=== PATIENT | female | born 1975 | race African-American/Black ===

== ENCOUNTER 2017-11-28 21:58 | Emergency (ER) | payer SELFPAY ==
[~2017-11-28] VITALS: Ht 157.5 cm; Wt 102.5 kg
--- OUTSIDE RECORDS SUMMARY | 2017-11-28 22:00 | XMS REPORT ---
[facility] Address Unknown Phone Unavailable Care Team Providers Care Perforator Typist Name Role Phone JULIEN GILLILAND Unavailable Unavailable Problems This patient has no known problems. Allergies, Adverse Reactions, Alerts This patient has no known allergies or adverse reactions. Medications This patient has no known medications. Results Test Description Test Time Test Comments Text Results Atomic Results Result Comments CHEST SINGLE (PORTABLE) [place] [id number] Patient Name: KIKI LAI MR #: [id number] : 1975 Age/Sex: 42/F Req #: [id number] Adm Physician: Ordered by: JULIEN GILLILAND MD Report #: [id number] Location: ER Room/Bed: ___ Procedure: [id number] DX/CHEST SINGLE (PORTABLE) Exam Date: 08/03/17 Exam Time: 2039 REPORT STATUS: Signed EXAMINATION: CHEST SINGLE (PORTABLE) INDICATION: COMPARISON: None FINDINGS: AP view TUBES and LINES: None. LUNGS: Limited by body habitus. Lungs are well inflated. Mild central vascular congestion. No focal consolidation. PLEURA: No pleural effusion or pneumothorax. HEART AND MEDIASTINUM: The cardiomediastinal silhouette is unremarkable. Prominent right paratracheal stripe. BONES AND SOFT TISSUES: No acute osseous lesion. Soft tissues are unremarkable. UPPER ABDOMEN: No free air under the diaphragm. IMPRESSION: Mild central vascular congestion. Otherwise, unremarkable. Signed by: Dr. Joaquín Bonilla MD on 08/03/2017 8:49 PM Dictated By : JOAQUÍN BONILLA MD 46 Transcribed By: PANCHITO on 08/03/172048 COPY TO: JULIEN GILLILAND MD
[2017-11-28 22:52] LABS: BASOPHILS # (AUTO) 0.1 (0.0-0.1); BASOPHILS % 0.6 % (0.0-1.0); EOSINOPHILS # (AUTO) 0.1 (0.0-0.4); EOSINOPHILS % 1.6 % (0.0-6.0); HEMATOCRIT 34.3 % (34.2-44.1); HEMOGLOBIN 11.1 g/dL (12.0-16.0); LYMPHOCYTES % 56.4 % (18.0-39.1); MEAN CORPUSCULAR HEMOGLOBIN 27.4 pg (28-32); MEAN CORPUSCULAR HGB CONC 32.4 g/dL (31-35); MEAN CORPUSCULAR VOLUME 84.7 fL (81-99); MONOCYTES # (AUTO) 0.7 (0.2-0.8); NEUTROPHILS # (AUTO) 2.9 (2.1-6.9); NEUTROPHILS % 33.1 % (38.7-80.0); PLATELET COUNT 336 x10e3/uL (140-360); RED BLOOD COUNT 4.05 x10e6/uL (3.6-5.1)
[2017-11-28 23:07] LABS: ALANINE AMINOTRANSFERASE 14 IU/L (0-55); ALBUMIN 3.3 g/dL (3.5-5.0); ALKALINE PHOSPHATASE 76 IU/L (40-150); ANION GAP 14.1 mmol/L (8-16); BLOOD UREA NITROGEN 7 mg/dL (7-26); BUN/CREATININE RATIO 9 (6-25); CALCIUM 8.8 mg/dL (8.4-10.2); CARBON DIOXIDE 19 mmol/L (22-29); CHLORIDE 107 mmol/L (98-107); CREATININE, SERUM 0.77 mg/dL (0.57-1.11); EST GLOMERULAR FILTRATION RATE > 60 ML/MIN (60-); GLUCOSE 92 mg/dL (74-118); POTASSIUM 4.1 mmol/L (3.5-5.1); SODIUM 136 mmol/L (136-145)
--- NOTE | 2017-11-28 23:08 | Diagnostic Imaging Report ---
History:Headache, slurred speech, migraines Comparison studies:None Technique: Axial images were obtained from the brain and cervical spine. Coronal and sagittal images reconstructed from the axial data. Intravenous contrast: None Findings: Head CT: Scalp/skull: No abnormalities. No fractures, blastic or lytic lesions. Brain sulci: Appropriate for age. Ventricles: Normal in size and configuration. No hydrocephalus. Extra-axial spaces: No masses. No fluid collections. Parenchyma: No abnormal densities. No masses, hemorrhage, acute or chronic cortical vascular insults. Sellar/suprasellar region: No abnormalities. Craniocervical junction: Patent foramen magnum. No Chiari one malformation. Cervical spine CT: Fractures: None. Soft tissues: No gross abnormalities. Atlantoaxial articulation: Intact. Alignment: Straightening of thr normal lordosis. No scoliosis. Cervicomedullary junction: No abnormalities. Patent foramen magnum. Vertebrae: No infection or neoplasm. Degenerative changes: None. Incidental findings: None. Impression: Head CT: 1. Normal. Cervical spine CT: 1. No acute abnormalities. 2. Cannot exclude ligament, spinal cord and or vascular abnormalities on the basis of this examination. Signed by: DR Chance Tapia M.D. on 11/28/2017 11:04 PM
== END 2017-11-28 23:36 | disposition home or self-care (01) ==
LOC: ER 21:58
DX: M54.2 Cervicalgia (principal); S16.1XXA Strain of muscle, fascia and tendon at neck level, initial encounter; G44.211 Episodic tension-type headache, intractable
CPT/HCPCS: 36415; 70450; 72125; 80053; 85025; 99283

== ENCOUNTER 2019-02-20 08:24 | Emergency (ER) | payer SELFPAY ==
[~2019-02-20] VITALS: Ht 157.5 cm; Wt 112.9 kg
--- OUTSIDE RECORDS SUMMARY | 2019-02-20 08:28 | XMS REPORT ---
Author Author Dr. Enzo Chiang Organization [employer] Address Unknown Phone Unavailable Care Team Providers Care Lacquer Mixer Name Role Phone Dr. Enzo Chiang CP Unavailable Encounters Encounter Location Date Rizatriptan [place] January 04, 2015 Unknown [place] January 11, 2015 6 wk f/u Enzo Chiang MD, [place] January 17, 2015 New Refill Request Enzo Chiang MD, [place] February 26, [address] 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 High school diploma, [employer] Jun 04, 2015 Use of recreational / street drugs? . Answer: No Jun 04, 2015 Caffeine intake? . Status: Yes, What type: Coffee, 1 cup a day Jun 04, 2015 Do you exercise? . Answer: Yes Very Little Jun 04, 2015 Do you drink alcohol? . 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
--- OUTSIDE RECORDS SUMMARY | 2019-02-20 08:28 | XMS REPORT ---
Author Author Enzo Chiang [employer] Address Unknown Phone Unavailable Care Team Providers Care Oxyhydrogen Welder Name Role Phone Enzo Chiang CP Unavailable Encounters Encounter Location Date Rizatriptan [place] January 04, 2015 Unknown [place] January 11, 2015 6 wk f/u Enzo Chiang MD, [place] January 17, 2015 New Refill Request [place] February 26, [address] 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 High school diploma, [employer] January 17, 2015 Use of recreational / street drugs? . Answer: No January 17, 2015 Caffeine intake? . Status: Yes, What type: Coffee, 1 cup a day January 17, 2015 Do you exercise? . Answer: Yes Very Little January 17, 2015 Do you drink alcohol? . 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
--- OUTSIDE RECORDS SUMMARY | 2019-02-20 08:28 | XMS REPORT ---
Author Author Enzo Chiang [employer] Address Unknown Phone Unavailable Care Team Providers Care Tank Erector Name Role Phone Enzo Chiang CP Unavailable Encounters Encounter Location Date Rizatriptan [place] January 04, 2015 Unknown [place] January 11, 2015 6 wk f/u [place] January 17, 2015 New Refill Request Enzo [...] [place], [place] March 06, 2015 Problems Problem Type Condition ICD-9 Code [...]
--- OUTSIDE RECORDS SUMMARY | 2019-02-20 08:28 | XMS REPORT ---
Author Author Dr. Enzo Chiang Organization [employer] Address Unknown Phone Unavailable Care Team Providers Care Sanitarian Name Role Phone Dr. Enzo Chiang CP Unavailable Allergies, Adverse Reactions, Alerts Substance Reaction Event Type Penicillin Info Not Available Drug Allergy Encounters Encounter Location Date Rizatriptan [place] January 04, 2015 Unknown Enzo Chiang MD, [place] January 11, 2015 6 wk f/u Enzo [...] March 18, 2015 New Refill Request Enzo Chaing MD, [place] February 26, 2015 Side Effects Enzo Chiang [place], [place] March 06, 2015 6 month f/u [place] December 18, 2015 2 month follow up Enzo Chi[place], [place] Jun 04, 2015 Health update En[place] Chi[place], [place] Jul 22, 2015 follow up medication Enzo Chiang MD, [place] April 02, 2015 Migraine Headache Enzo Chi[place], [place] April 09, 2015 Problems Problem Type Condition ICD-9 Code Onset Dates Condition Status Problem Status migrainosus G43.901 Active 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 Problem Common migraine with intractable migraine G43.019 Active Assessment Status migrainosus G43.901 Active Problem Tension headache 307.81 Active Assessment Common migraine with intractable migraine G43.019 Active Medications Medication Code System Code Instructions Start Date End Date Status Dosage [facility] [address]-75 100 mg Orally twice a day (bid) January 17, 2015 Active 1 tablet Nortriptyline HCl [facility] [address]-33 50 mg Orally twice a day (bid) December 11, 2014 Active 1 capsule Medrol (Michel) [facility] [address]-14 4 mg Orally as directed December 18, 2015 December 25, 2015 Active as directed Rizatriptan Benzoate [facility] [address]-53 10 mg Orally as needed (prn) Active 1 tablet as needed one time Social History Social History Element Qualifiers Date Reported Highest level of education completed: . High school diploma, [employer] December 18, 2015 Use of recreational / street drugs? . Answer: No December 18, 2015 Caffeine intake? . Status: Yes, What type: Coffee, 1 cup a day December 18, 2015 Do you exercise? . Answer: Yes Very Little December 18, 2015 Do you drink alcohol? . 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
--- OUTSIDE RECORDS SUMMARY | 2019-02-20 08:28 | XMS REPORT ---
Author Author Enzo Chiang [employer] Address Unknown Phone Unavailable Care Team Providers Care Surgery Attendant Name Role Phone Enzo Chiang CP Unavailable Encounters Encounter Location Date Rizatriptan Refill [place] January 04, 2015 Unknown Enzo Chiang MD [place] January 11, 2015 6 wk f/u [place] January 17, 2015 New Refill Request [place] February 26, [address] Javier Ortega; Migraine [place], [place] November 28, 2014 follow up medication [place], [place] April 02, 2015 f/u lab results En[place] Chi[place], [place] December 11, 2014 Migraine Headache Enzo Chiang MD, [place] April 09, 2015 Migraine [place], [place] December 17, [...] completed: . High school diploma, [employer] April 02, 2015 Use of recreational / street drugs? . Answer: No April 02, 2015 Caffeine intake? . Status: Yes, What type: Coffee, 1 cup a day April 02, 2015 Do you exercise? . Answer: Yes Very Little April 02, 2015 Do you drink alcohol? . 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
--- OUTSIDE RECORDS SUMMARY | 2019-02-20 08:28 | XMS REPORT | Continuity of Care Document ---
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 Andree [place] Common migraine Active Problem 07/23/2015 Andree [place] Status migrainosus Active Problem 12/19/2015 Andree Mariia Common migraine with intractable migraine Active Problem 12/19/2015 Andree Mariia Medications Medication Details Route Status Patient Instructions Ordering Provider Order Date Source Medrol (Michel) as directed Orally Active 4 mg Orally as directed [place] 12/18/2015 Andree Mariia Topiramate 25mg titration 1 tablet at bedtime for 1 week, the 2 tablets for 1 week then 3 tablets for 1 week Orally No Longer Active 25 MG Orally Once a day [place] 04/02/2015 Andree Mariia Topiramate 1 tablet Orally Active 100 mg Orally twice a day (bid) [place] 01/17/2015 Andree [place] Tramadol HCl 1 tablet as needed Orally No Longer Active 50 MG Orally every 6 hrs [place] 12/11/2014 Andree [place] Nortriptyline HCl 1 capsule for 3 days then 2 for 3 days then 3 for 3 days then 4 thereafter Orally Active 10 mg Orally once every night [place] 12/11/2014 Andree [place] Nortriptyline HCl 1 capsule Orally Active 50 mg Orally twice a day (bid) [place] 12/11/2014 Andree Mariia Promethazine HCl Unknown Orally Active 25 MG Orally [place] Andree [place] Hydrocodone-Acetaminophen 1 tablet as needed Orally Active 10- 325 MG Orally every 6 hrs [place] Andree [place] Relpax 1 tablet as needed one time Orally Active 40 MG Orally Once a day [place] Andree [place] Propranolol HCl 1 tablet Orally Active 10 MG Orally Three times a day [place] Andree [place] Rizatriptan Benzoate 1 tablet as needed one time Orally Active 10 mg Orally as needed (prn) [place] Andree Mariia Allergies, Adverse Reactions, Alerts Substance Category Reaction Severity Reaction type Status Date Reported Comments Source Penicillin Adverse Reaction Info Not Available Adverse Reaction Active 12/18/2015 Andree Mariia Immunizations Immunization Date Given Site Status Last Updated Comments Source Results Order Name Results Value Reference Range Date Interpretation Comments Source Automated blood basophil count (count/volume) Automated blood basophil count (count/volume) 0.1 0.0 - 0.1 11/28/2017 [facility] Automated blood basophil count as percentage of total leukocytes Automated blood basophil count as percentage of total leukocytes 0.6 0.0 - 1.0 11/28/2017 [facility] Automated blood eosinophil count Automated blood eosinophil count 0.1 0.0 - 0.4 11/28/2017 [facility] Automated blood eosinophil count as percentage of total leukocytes Automated blood eosinophil count as percentage of total leukocytes 1.6 0.0 - 6.0 11/28/2017 [facility] Automated blood hematocrit (volume fraction) Automated blood hematocrit (volume fraction) 34.3 34.2 - 44.1 11/28/2017 [facility] Automated blood lymphocyte count as percentage ot total leukocytes Automated blood lymphocyte count as percentage ot total leukocytes 56.4 18.0 - 39.1 11/28/2017 [facility] Automated blood monocyte count as percentage of total leukocytes Automated blood monocyte count as percentage of total leukocytes 8.0 4.4 - 11.3 11/28/2017 [facility] Automated blood neutrophil count Automated blood neutrophil count 2.9 2.1 - 6.9 11/28/2017 [facility] Automated blood platelet count (count/volume) Automated blood platelet count (count/volume) 336 140 - 360 11/28/2017 [facility] Automated blood segmented neutrophil count as percentage of total leukocytes Automated blood segmented neutrophil count as percentage of total leukocytes 33.1 38.7 - 80.0 11/28/2017 [facility] Automated erythrocyte mean corpuscular hemoglobin (mass per erythrocyte) Automated erythrocyte mean corpuscular hemoglobin (mass per erythrocyte) 27.4 28 - 32 11/28/2017 [facility] Automated erythrocyte mean corpuscular hemoglobin concentration measurement (mass/volume) Automated erythrocyte mean corpuscular hemoglobin concentration measurement (mass/volume) 32.4 31 - 35 11/28/2017 [facility] Automated erythrocyte mean corpuscular volume Automated erythrocyte mean corpuscular volume 84.7 81 - 99 11/28/2017 [facility] Blood erythrocytes automated count (number/volume) Blood erythrocytes automated count (number/volume) 4.05 3.6 - 5.1 11/28/2017 [facility] Blood hemoglobin measurement (moles/volume) Blood hemoglobin measurement (moles/volume) 11.1 12.0 - 16.0 11/28/2017 [facility] Blood leukocytes automated count (number/volume) Blood leukocytes automated count (number/volume) 8.87 4.8 - 10.8 11/28/2017 [facility] Blood lymphocytes count (number/volume) Blood lymphocytes count (number/volume) 5.0 1.0 - 3.2 11/28/2017 [facility] Blood monocytes automated count (number/volume) Blood monocytes automated count (number/volume) 0.7 0.2 - 0.8 11/28/2017 [facility] Estimated glomerular filtration rate (GFR) determination Estimated glomerular filtration rate (GFR) determination null 60 11/28/2017 [facility] Glucose measurement Glucose measurement 92 74 - 118 11/28/2017 [facility] Plasma globulin measurement (mass/volume) Plasma globulin measurement (mass/volume) 3.4 2.3 - 3.5 11/28/2017 [facility] Serum or plasma alanine aminotransferase measurement (enzymatic activity/volume) Serum or plasma alanine aminotransferase measurement (enzymatic activity/volume) 14 0 - 55 11/28/2017 [facility] Serum or plasma albumin measurement (mass/volume) Serum or plasma albumin measurement (mass/volume) 3.3 3.5 - 5.0 11/28/2017 [facility] Serum or plasma albumin/globulin mass ratio Serum or plasma albumin/globulin mass ratio 1.0 0.8 - 2.0 11/28/2017 [facility] Serum or plasma alkaline phosphatase measurement (enzymatic activity/volume) Serum or plasma alkaline phosphatase measurement (enzymatic activity/volume) 76 40 - 150 11/28/2017 [facility] Serum or plasma anion gap Serum or plasma anion gap 14.1 8 - 16 11/28/2017 [facility] Serum or plasma calcium measurement (mass/volume) Serum or plasma calcium measurement (mass/volume) 8.8 8.4 - 10.2 11/28/2017 [facility] Serum or plasma carbon dioxide, total measurement (moles/volume) Serum or plasma carbon dioxide, total measurement (moles/volume) 19 22 - 29 11/28/2017 [facility] Serum or plasma chloride measurement (moles/volume) Serum or plasma chloride measurement (moles/volume) 107 98 - 107 11/28/2017 [facility] Serum or plasma creatinine measurement (mass/volume) Serum or plasma creatinine measurement (mass/volume) 0.77 0.57 - 1.11 11/28/2017 [facility] Serum or plasma potassium measurement (moles/volume) Serum or plasma potassium measurement (moles/volume) 4.1 3.5 - 5.1 11/28/2017 [facility] Serum or plasma protein measurement (mass/volume) Serum or plasma protein measurement (mass/volume) 6.7 6.5 - 8.1 11/28/2017 [facility] Serum or plasma sodium measurement (moles/volume) Serum or plasma sodium measurement (moles/volume) 136 136 - 145 11/28/2017 [facility] Serum or plasma total bilirubin measurement (mass/volume) Serum or plasma total bilirubin measurement (mass/volume) null 0.2 - 1.2 11/28/2017 [facility] Serum or plasma urea nitrogen measurement (mass/volume) Serum or plasma urea nitrogen measurement (mass/volume) 7 7 - 26 11/28/2017 [facility] Serum or plasma urea nitrogen/creatinine mass ratio Serum or plasma urea nitrogen/creatinine mass ratio 9 6 - 25 11/28/2017 [facility] Red Cell Distribution Width 16.0 11.7 - 14.4 11/28/2017 [facility] IM GRANULOCYTES % 0.3 0.0 - 1.0 11/28/2017 [facility] Absolute Immature Granulocyte (auto 0.03 0 - 0.1 11/28/2017 [facility] Aspartate Amino Transf (AST/SGOT) 21 5 - 34 11/28/2017 [facility] Automated urine sediment leukocyte count by microscopy (number/high power field) Automated urine sediment leukocyte count by microscopy (number/high power field) null 0 - 5 08/03/2017 [facility] Bacteria detection in urine sediment by light microscopy Bacteria detection in urine sediment by light microscopy FEW NONE 08/03/2017 [facility] Barbiturates screen, urine Barbiturates screen, urine NEGATIVE NEGATIVE 08/03/2017 [facility] Epithelial cells detection in urine sediment by light microscopy Epithelial cells detection in urine sediment by light microscopy MODERATE NONE 08/03/2017 [facility] Erythrocytes detection in urine sediment by light microscopy Erythrocytes detection in urine sediment by light microscopy null 0 - 5 08/03/2017 [facility] Specific gravity of Urine by Test strip Specific gravity of Urine by Test strip 1.015 1.010 - 1.025 08/03/2017 [facility] Urine amphetamines detection by screen method > 1000 ng/mL Urine amphetamines detection by screen method > 1000 ng/mL NEGATIVE NEGATIVE 08/03/2017 [facility] Urine benzodiazepines detection by screening method Urine benzodiazepines detection by screening method NEGATIVE NEGATIVE 08/03/2017 [facility] Urine cannabinoids detection by screening method Urine cannabinoids detection by screening method NEGATIVE NEGATIVE 08/03/2017 [facility] Urine clarity Urine clarity HAZY CLEAR 08/03/2017 [facility] Urine color determination Urine color determination YELLOW YELLOW 08/03/2017 [facility] Urine erythrocytes detection Urine erythrocytes detection NEGATIVE NEGATIVE 08/03/2017 [facility] Urine glucose detection Urine glucose detection NEGATIVE NEGATIVE 08/03/2017 [facility] Urine ketones detection by automated test strip Urine ketones detection by automated test strip NEGATIVE NEGATIVE 08/03/2017 [facility] Urine leukocyte esterase detection by dipstick Urine leukocyte esterase detection by dipstick 1+ NEGATIVE 08/03/2017 [facility] Urine nitrite detection Urine nitrite detection NEGATIVE NEGATIVE 08/03/2017 [facility] Urine opiates screening test Urine opiates screening test NEGATIVE NEGATIVE 08/03/2017 [facility] Urine pH measurement by automated test strip Urine pH measurement by automated test strip 6.5 5 - 7 08/03/2017 [facility] Urine phencyclidine detection by screening method Urine phencyclidine detection by screening method NEGATIVE NEGATIVE 08/03/2017 [facility] Urine protein measurement by test strip (mass/volume) Urine protein measurement by test strip (mass/volume) NEGATIVE NEGATIVE 08/03/2017 [facility] Urine total bilirubin measurement (mass/volume) Urine total bilirubin measurement (mass/volume) NEGATIVE NEGATIVE 08/03/2017 [facility] Urine urobilinogen measurement by test strip (mass/volume) Urine urobilinogen measurement by test strip (mass/volume) 0.2 0.2 - 1 08/03/2017 [facility] Yeast detection in urine sediment by light microscopy Yeast detection in urine sediment by light microscopy RARE NONE 08/03/2017 [facility] Urine Cocaine Screen NEGATIVE NEGATIVE 08/03/2017 [facility] Activated partial thromboplastin time (aPTT) in platelet poor plasma bycoagulation assay Activated partial thromboplastin time (aPTT) in platelet poor plasma bycoagulation assay 26.1 23.8 - 35.5 08/03/2017 [facility] Blood anisocytosis detection by light microscopy Blood anisocytosis detection by light microscopy SLIGHT 08/03/2017 [facility] Blood hypochromia detection by light microscopy Blood hypochromia detection by light microscopy SLIGHT 08/03/2017 [facility] Blood platelets count by estimate (number/volume) Blood platelets count by estimate (number/volume) SLIGHTLY INCREASED 08/03/2017 [facility] Blood poikilocytosis detection by light microscopy Blood poikilocytosis detection by light microscopy SLIGHT 08/03/2017 [facility] Blood target cells detection by light microscopy Blood target cells detection by light microscopy FEW 08/03/2017 [facility] Fibrin D-dimer DDU measurement in platelet poor plasma (mass/volume) Fibrin D-dimer DDU measurement in platelet poor plasma (mass/volume) 0.15 0.00 - 0.45 08/03/2017 [facility] INR in Platelet poor plasma by Coagulation assay INR in Platelet poor plasma by Coagulation assay 0.91 08/03/2017 [facility] Manual basophil percentage Manual basophil percentage 1 0 - 1.5 08/03/2017 [facility] Manual blood eosinophil count as percentage of total leukocytes Manual blood eosinophil count as percentage of total leukocytes 3 0 - 7 08/03/2017 [facility] Manual blood lymphocytes/100 leukocytes Manual blood lymphocytes/100 leukocytes 60 19 - 48 08/03/2017 [facility] Manual blood monocytes/100 leukocytes Manual blood monocytes/100 leukocytes 4 3.4 - 9.0 08/03/2017 [facility] Manual blood neutrophils/100 leukocytes Manual blood neutrophils/100 leukocytes 32 40 - 74 08/03/2017 [facility] Platelet morphology Platelet morphology FEW LARGE 08/03/2017 [facility] Prothrombin time (PT) in platelet poor plasma by coagulation assay Prothrombin time (PT) in platelet poor plasma by coagulation assay 12.7 11.9 - 14.5 08/03/2017 [facility] Serum or plasma creatine kinase MB measurement (mass/volume) Serum or plasma creatine kinase MB measurement (mass/volume) 0.50 0.00 - 5.00 08/03/2017 [facility] Serum or plasma creatine kinase measurement (enzymatic activity/volume) Serum or plasma creatine kinase measurement (enzymatic activity/volume) 112 29 - 168 08/03/2017 [facility] Troponin I measurement by highly sensitive enzyme immunoassay Troponin I measurement by highly sensitive enzyme immunoassay 0.017 0 - 0.300 08/03/2017 [facility] Differential Total Cells Counted 100 08/03/2017 [facility] Vital Signs Vital Sign Value Date Comments Source Weight 225.4 12/18/2015 Andree [place] Height 62 12/18/2015 Andree Mariia Heart Rate 82 12/18/2015 Andree [place] Diastolic (mm Hg) 75 12/18/2015 Andree [place] Systolic (mm Hg) 117 12/18/2015 Andree [place] Weight 231.4 06/04/2015 Andree [place] Height 62 06/04/2015 Andree [place] Heart Rate 79 06/04/2015 Andree [place] Diastolic (mm Hg) 87 06/04/2015 Andree Mariia Systolic (mm Hg) 121 06/04/2015 Andree [place] Weight 228.0 04/02/2015 Andree Mariia Height 62 04/02/2015 Andree Mariia Heart Rate 70 04/02/2015 Andree [place] Diastolic (mm Hg) 76 04/02/2015 Andree [place] Systolic (mm Hg) 119 04/02/2015 Andree Mariia Weight 227.6 12/11/2014 Andree [place] Height 62 12/11/2014 Andree [place] Heart Rate 73 12/11/2014 Andree Mariia Diastolic (mm Hg) 85 12/11/2014 Andree Mariia Systolic (mm Hg) 122 12/11/2014 Andree Mariia Encounters Location Location Details Encounter Type Encounter Number Reason For Visit Attending Provider ADM Date DC Date Status Source Andree Celis MD, [place] Ref by Dr. Javier Ortega; Migraine [id number] 11/28/2014 11/28/2014 Andree Celis MD, [place] Ref by Dr. Javier Ortega; Migraine [id number] 11/28/2014 11/28/2014 Andree Celis MD, [place] Ref by Dr. Javier Ortega; Migraine [id number] 11/28/2014 11/28/2014 Andree Celis MD, [place] Ref by Dr. Javier Ortega; Migraine [id number] 11/28/2014 11/28/2014 Andree Celis MD, [place] Ref by Dr. Javier Ortega; Migraine [id number] 11/28/2014 11/28/2014 Andree Celis MD, [place] Ref by Dr. Javier Ortega; Migraine [id number] 11/28/2014 11/28/2014 Andree Celis MD, [place] Ref by Dr. Javier Ortega; Migraine [id number] 11/28/2014 11/28/2014 Andree Celis MD, [place] Ref by Dr. Javier Ortega; Migraine [id number] 11/28/2014 11/28/2014 Andree Celis MD, PA f/u lab results [id number] 12/11/2014 12/11/2014 Andree Celis MD, PA f/u lab results [id number] 12/11/2014 12/11/2014 Adnree Celis MD, PA f/u lab results [id number] 12/11/2014 12/11/2014 Andree Celis MD, PA f/u lab results [id number] 12/11/2014 12/11/2014 Andree Celis MD, PA f/u lab results [id number] 12/11/2014 12/11/2014 Andree Celis MD, PA f/u lab results [id number] 12/11/2014 12/11/2014 Andree Celis MD, PA f/u lab results [id number] 12/11/2014 12/11/2014 Andree Celis MD, PA f/u lab results [id number] 12/11/2014 12/11/2014 Andree Celis MD, [place] Migraine [id number] 12/17/2014 12/17/2014 Andree Celis MD, PA Migraine [id number] 12/17/2014 12/17/2014 Andree Celis MD, [place] Migraine [id number] 12/17/2014 12/17/2014 Andree Celis MD, PA Migraine [id number] 12/17/2014 12/17/2014 Andree Celis MD, [place] Migraine [id number] 12/17/2014 12/17/2014 Andree Celis MD, [place] Migraine [id number] 12/17/2014 12/17/2014 Andree Celis MD, [place] Migraine [id number] 12/17/2014 12/17/2014 Andree Celis MD, [place] Rizatriptan Refill [id number] 01/04/2015 01/04/2015 Andree Celis MD, WI[place] Rizatriptan Refill [id number] 01/04/2015 01/04/2015 Andree Celis MD, [place] Rizatriptan Refill [id number] 01/04/2015 01/04/2015 Andree Celis MD, [place] Rizatriptan Refill [id number] 01/04/2015 01/04/2015 Andree Celis MD, [place] Rizatriptan Refill [id number] 01/04/2015 01/04/2015 Andree Celis MD, [place] Rizatriptan Refill [id number] 01/04/2015 01/04/2015 Andree Celis MD, [place] Rizatriptan Refill [id number] 01/04/2015 01/04/2015 Andree Celis MD, [place] Unknown [id number] 01/11/2015 01/11/2015 Andree Celis MD, [place] Unknown [id number] 01/11/2015 01/11/2015 Andree Celis MD, [place] Unknown [id number] 01/11/2015 01/11/2015 Andree Celis MD, [place] Unknown [id number] 01/11/2015 01/11/2015 Andree Celis MD, [place] Unknown [id number] 01/11/2015 01/11/2015 Andree Celis MD, [place] Unknown [id number] 01/11/2015 01/11/2015 Andree Celis MD, [place] Unknown [id number] 01/11/2015 01/11/2015 Andree Celis MD, PA 6 wk f/u [id number] 01/17/2015 01/17/2015 Andree Celis MD, PA 6 wk f/u [id number] 01/17/2015 01/17/2015 Andree Celis MD, PA 6 wk f/u [id number] 01/17/2015 01/17/2015 Andree Celis MD, PA 6 wk f/u [id number] 01/17/2015 01/17/2015 Andree Celis MD, PA 6 wk f/u [id number] 01/17/2015 01/17/2015 Andree Celis MD, PA 6 wk f/u [id number] 01/17/2015 01/17/2015 Andree Celis MD, PA 6 wk f/u [id number] 01/17/2015 01/17/2015 Andree Celis MD, [place] New Refill Request [id number] 02/26/2015 02/26/2015 Andree Celis MD, [place] New Refill Request [id number] 02/26/2015 02/26/2015 Andree Celis MD, [place] New Refill Request [id number] 02/26/2015 02/26/2015 Andree Celis MD, [place] New Refill Request [id number] 02/26/2015 02/26/2015 Andree Celis MD, [place] New Refill Request [id number] 02/26/2015 02/26/2015 Andree Celis MD, [place] New Refill Request [id number] 02/26/2015 02/26/2015 Andree Celis MD, [place] New Refill Request [id number] 02/26/2015 02/26/2015 Andree Celis MD, [place] New Refill Request [id number] 02/26/2015 02/26/2015 Andree Celis MD, [place] New Refill Request [id number] 02/26/2015 02/26/2015 Andree Celis MD, [place] New Refill Request [id number] 02/26/2015 02/26/2015 Andree Celis MD, [place] New Refill Request [id number] 02/26/2015 02/26/2015 Andree Celis MD, [place] New Refill Request [id number] 02/26/2015 02/26/2015 Andree Celis MD, [place] New Refill Request [id number] 02/26/2015 02/26/2015 Andree Celis MD, [place] New Refill Request [id number] 02/26/2015 02/26/2015 Andree Celis MD, [place] Side Effects [id number] 03/06/2015 03/06/2015 Andree Celis MD, [place] Side Effects [id number] 03/06/2015 03/06/2015 Andree Celis MD, [place] Side Effects [id number] 03/06/2015 03/06/2015 Andree Celis MD, [place] Side Effects [id number] 03/06/2015 03/06/2015 Andree Celis MD, [place] Side Effects [id number] 03/06/2015 03/06/2015 Andree Celis MD, [place] Side Effects [id number] 03/06/2015 03/06/2015 Andree Celis MD, [place] Email Receipt [id number] 03/18/2015 03/18/2015 Andree Celis MD, [place] Email Receipt [id number] 03/18/2015 03/18/2015 Andree Celis MD, [place] Email Receipt [id number] 03/18/2015 03/18/2015 Andree Celis MD, [place] Email Receipt [id number] 03/18/2015 03/18/2015 Andree Celis MD, PA Email Receipt [id number] 03/18/2015 03/18/2015 Andree Celis MD, PA Email Receipt [id number] 03/18/2015 03/18/2015 Andree Celis MD, PA follow up medication [id number] 04/02/2015 04/02/2015 Andree Celis MD, PA follow up medication [id number] 04/02/2015 04/02/2015 Andree Celis MD, PA follow up medication [id number] 04/02/2015 04/02/2015 Andree Celis MD, PA follow up medication [id number] 04/02/2015 04/02/2015 Andree Celis MD, PA follow up medication [id number] 04/02/2015 04/02/2015 Andree Celis MD, PA Migraine Headache [id number] 04/09/2015 04/09/2015 Andree Celis MD, PA Migraine Headache [id number] 04/09/2015 04/09/2015 Andree Celis MD, PA Migraine Headache [id number] 04/09/2015 04/09/2015 Andree Celis MD, PA Migraine Headache [id number] 04/09/2015 04/09/2015 Andree Celis MD, PA 2 month follow up [id number] 06/04/2015 06/04/2015 Andree Celis MD, PA 2 month follow up [id number] 06/04/2015 06/04/2015 Andree Celis MD, PA 2 month follow up [id number] 06/04/2015 06/04/2015 Andree Celis MD, PA Health update [id number] 07/22/2015 07/22/2015 Andree Celis MD, PA Health update [id number] 07/22/2015 07/22/2015 Andree Celis Outpatient [id number] ANDREE CELIS 12/18/2015 Active [facility] Celis MD, [facility] 6 month f/u [id number] 12/18/2015 12/18/2015 Andree Celis Departed Emergency Room [id number] JULIEN GILLILAND MD 08/03/2017 08/03/2017 [facility] Departed Emergency Room [id number] JULIEN GILLILAND MD 11/28/2017 11/28/2017 [facility] Outpatient [id number] ANDREE CELIS 12/26/2018 Active [facility] Procedures Procedure Code Date Perfomer Comments Source Computed tomography of brain without radiopaque contrast [id number] 11/28/2017 [facility] Computed tomography of cervical spine without contrast [id number] 11/28/2017 [facility]
--- OUTSIDE RECORDS SUMMARY | 2019-02-20 08:28 | XMS REPORT ---
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 Tension headache 307.81 Active Problem Common migraine 346.10 Active 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 Common migraine 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.10 Active Assessment Tension headache 307.81 Active Medications Medication Code System Code Instructions Start Date End Date Status Dosage Topiramate [facility] [address]-12 100 mg Orally twice a day (bid) January 17, 2015 Active 1 tablet Nortriptyline HCl [facility] [address]-58 50 MG Orally once every night December 11, 2014 Active 2 capsule Rizatriptan Benzoate [facility] [address]-36 10 MG Orally as needed (prn) Active 1 tablet [...] Medical Billing & Coding Jun 04, 2015 Vital Signs Date/Time: Jun 04, 2015 Weight 231.4 lbs Height 62 in Cardiac Monitoring Heart Rate 79 /min Blood Pressure Diastolic 87 mm Hg Blood Pressure Systolic 121 mm Hg Summary Purpose eClinicalWorks Submission
--- OUTSIDE RECORDS SUMMARY | 2019-02-20 08:28 | XMS REPORT ---
Author Author Enzo Chiang [employer] Address Unknown Phone Unavailable Care Team Providers Care Staffing Analyst Name Role Phone Enzo Chiang CP Unavailable [...] 2015 f/u lab results Enzo Chiang MD, WILEY December 11, 2014 Migraine Enzo Chiang MD PA December 17, 2014 Email Receipt Enzo Chiang MD, WILEY March 18, 2015 New Refill Request Enzo [...] Instructions Start Date End Date Status Dosage Relpax [facility] [address]-44 40 MG Orally Once a day Active 1 tablet as needed one time Topiramate 25mg titration [facility] 27868766386 25 MG Orally Once a day April 02, 2015 Inactive 1 tablet at bedtime for 1 week, the 2 tablets for 1 week then 3 tablets for 1 week Nortriptyline HCl [facility] [address]-91 50 MG Orally once every night December 11, 2014 Active 2 capsule Rizatriptan Benzoate [facility] [address]-03 10 MG Orally Once a day Active 1 tablet as needed one time Topiramate [facility] [address]-03 100 mg Orally twice a day (bid) January 17, 2015 Active 1 tablet Propranolol HCl [facility] [address]-79 10 MG Orally Three times a day Active 1 tablet Hydrocodone-Acetaminophen [facility] [address]-19 10-325 MG Orally every 6 hrs Active 1 tablet as needed Promethazine HCl [facility] [address]-89 25 MG Orally Active Unknown Social History Social History Element Qualifiers Date [...] Medical Billing & Coding April 02, 2015 Vital Signs Date/Time: April 02, 2015 Weight 228.0 lbs Height 62 in Cardiac Monitoring Heart Rate 70 /min Blood Pressure Diastolic 76 mm Hg Blood Pressure Systolic 119 mm Hg Summary Purpose eClinicalWorks Submission
--- OUTSIDE RECORDS SUMMARY | 2019-02-20 08:28 | XMS REPORT ---
Author Author Enzo Chiang Organization [employer] Address Unknown Phone Unavailable Care Team Providers Care Drill Press Operator For Metal Name Role Phone Enzo Chiang CP Unavailable Allergies, Adverse Reactions, Alerts Substance Reaction Event Type Penicillin Info Not Available Drug Allergy Encounters Encounter Location Date Ref by Dr. 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 Medications Medication Code System Code Instructions Start Date End Date Status Dosage Promethazine HCl [facility] [address]-97 25 MG Orally Active Unknown Hydrocodone-Acetaminophen [facility] [address]-85 10-325 MG Orally every 6 hrs Active 1 tablet as needed Relpax [facility] [address]-24 40 MG Orally Once a day Active 1 tablet as needed one time Tramadol HCl [facility] [address]-27 50 MG Orally every 6 hrs December 11, 2014 Inactive 1 tablet as needed Propranolol HCl [facility] [address]-19 10 MG Orally Three times a day Active 1 tablet Rizatriptan Benzoate [facility] [address]-92 10 MG Orally Once a day Active 1 tablet as needed one time Nortriptyline HCl [facility] [address]-75 10 mg Orally once every night December 11, 2014 Active 1 capsule for 3 days then 2 for 3 days then 3 for 3 days then 4 thereafter Social History Social History Element Qualifiers Date Reported Highest level of education completed: . High school diploma, [employer] December 11, 2014 Use of recreational / street drugs? . Answer: No December 11, 2014 Caffeine intake? . Status: Yes, What type: Coffee, 1 cup a day December 11, 2014 Do you exercise? . Answer: Yes Very Little December 11, 2014 Do you drink alcohol? . 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
--- NOTE | 2019-02-20 09:26 | Diagnostic Imaging Report ---
EXAMINATION: CHEST SINGLE (PORTABLE) INDICATION: Chest pain. COMPARISON: Chest radiograph 08/03/2017. FINDINGS: TUBES and LINES: None. LUNGS: Lungs are well inflated. There is no evidence of pneumonia or pulmonary edema. PLEURA: No pleural effusion or pneumothorax. HEART AND MEDIASTINUM: The cardiomediastinal silhouette is unremarkable. BONES AND SOFT TISSUES: No acute osseous abnormality. UPPER ABDOMEN: No free air under the diaphragm. IMPRESSION: No acute radiographic abnormality. Signed by: Dr. Kailee Edwards MD on 02/20/2019 9:23 AM
[2019-02-20 10:13] LABS: BASOPHILS # (AUTO) 0.1 (0.0-0.1); BASOPHILS % 0.6 % (0.0-1.0); EOSINOPHILS # (AUTO) 0.2 (0.0-0.4); EOSINOPHILS % 1.9 % (0.0-6.0); HEMATOCRIT 40.2 % (34.2-44.1); HEMOGLOBIN 13.1 g/dL (12.0-16.0); LYMPHOCYTES # (AUTO) 4.4 (1.0-3.2); LYMPHOCYTES % 54.1 % (18.0-39.1); MEAN CORPUSCULAR HEMOGLOBIN 29.2 pg (28-32); MEAN CORPUSCULAR HGB CONC 32.6 g/dL (31-35); MEAN CORPUSCULAR VOLUME 89.7 fL (81-99); MONOCYTES # (AUTO) 0.6 (0.2-0.8); MONOCYTES % 7.7 % (4.4-11.3); NEUTROPHILS # (AUTO) 2.9 (2.1-6.9); NEUTROPHILS % 35.6 % (38.7-80.0); PLATELET COUNT 374 x10e3/uL (140-360); RED BLOOD COUNT 4.48 x10e6/uL (3.6-5.1)
[2019-02-20 10:15] LABS: BILIRUBIN,URINE NEGATIVE (NEGATIVE); CLARITY,URINE SL CLOUDY (CLEAR); COLOR,URINE YELLOW (YELLOW); KETONES,URINE NEGATIVE (NEGATIVE); LEUKOCYTE ESTERASE ,URINE NEGATIVE (NEGATIVE); NITRITE,URINE NEGATIVE (NEGATIVE); PROTEIN,URINE DIPSTICK NEGATIVE (NEGATIVE); URINE UROBILINOGEN 0.2 mg/dL (0.2 - 1)
[2019-02-20 10:25] LABS: INR 0.96; PROTHROMBIN TIME 13.3 seconds (11.9-14.5)
[2019-02-20 10:26] LABS: PARTIAL THROMBOPLASTIN TIME 28.9 seconds (23.8-35.5)
[2019-02-20 10:36] LABS: EPITHELIAL CELLS,URINE MODERATE /LPF; WBC,URINE (MAN) 0-5 /HPF (0-5)
[2019-02-20 10:37] LABS: ALANINE AMINOTRANSFERASE 14 IU/L (0-55); ALBUMIN 3.4 g/dL (3.5-5.0); ALKALINE PHOSPHATASE 74 IU/L (40-150); ANION GAP 10.8 mmol/L (8-16); BLOOD UREA NITROGEN 8 mg/dL (7-26); BUN/CREATININE RATIO 10 (6-25); CARBON DIOXIDE 24 mmol/L (22-29); CHLORIDE 104 mmol/L (98-107); CREATINE KINASE 108 IU/L (29-168); CREATININE, SERUM 0.81 mg/dL (0.57-1.11); EST GLOMERULAR FILTRATION RATE > 60 ML/MIN (60-); GLUCOSE 87 mg/dL (74-118); POTASSIUM 3.8 mmol/L (3.5-5.1); SODIUM 135 mmol/L (136-145)
[2019-02-20 10:37] LABS: BACTERIA,URINE MANY /HPF
== END 2019-02-20 12:13 | disposition home or self-care (01) ==
LOC: ER 08:24
DX: R00.2 Palpitations (principal); Z88.0 Allergy status to penicillin; R07.89 Other chest pain
CPT/HCPCS: 36415; 71045; 80053; 81001; 82550; 82553; 84443; 84484; 85025; 85610; 85730; 93005; 99284

== ENCOUNTER 2021-11-04 13:41 | Emergency (ER) | payer SELFPAY ==
[~2021-11-04] VITALS: Ht 157.5 cm; Wt 112.9 kg
[2021-11-04] MEDS ORDERED: IBUPROFEN 400 MG TAB PO ONE (14:00)
== END 2021-11-04 15:26 | disposition home or self-care (01) ==
LOC: ER 13:51
DX: M25.562 Pain in left knee (principal); X50.1XXA Overexertion from prolonged static or awkward postures, initial encounter
CPT/HCPCS: 99283

== ENCOUNTER 2024-09-14 21:28 | Emergency (ER) | payer BC ==
[~2024-09-14] VITALS: Ht 157.5 cm; Wt 124.7 kg
[2024-09-14] MEDS ORDERED: KETOROLAC TROMETHAMINE 30 MG/ML VIAL ONE (21:53)
[2024-09-14] MEDS: KETOROLAC TROMETHAMINE 30 MG/ML VIAL IV STA (21:58)
[2024-09-14 22:14] LABS: BASOPHILS % 0.3 % (0.0-1.0); EOSINOPHILS # (AUTO) 0.2 (0.0-0.4); EOSINOPHILS % 2.1 % (0.0-6.0); HEMATOCRIT 43.5 % (34.2-44.1); HEMOGLOBIN 13.6 g/dL (12.0-16.0); LYMPHOCYTES # (AUTO) 4.7 (1.0-3.2); LYMPHOCYTES % 54.6 % (18.0-39.1); MEAN CORPUSCULAR HEMOGLOBIN 30.2 pg (28-32); MEAN CORPUSCULAR HGB CONC 31.3 g/dL (31-35); MEAN CORPUSCULAR VOLUME 96.5 fL (81-99); MONOCYTES # (AUTO) 0.5 (0.2-0.8); NEUTROPHILS # (AUTO) 3.2 (2.1-6.9); NEUTROPHILS % 36.8 % (38.7-80.0); PLATELET COUNT 297 x10e3/uL (140-360); RED BLOOD COUNT 4.51 x10e6/uL (3.6-5.1); RED CELL DISTRIBUTION WIDTH 14.3 % (11.7-14.4); WHITE BLOOD COUNT 8.61 x10e3/uL (4.8-10.8)
[2024-09-14 22:37] LABS: ALBUMIN 3.8 g/dL (3.5-5.0); ANION GAP 17.5 mmol/L (8-16); BILIRUBIN,TOTAL 0.2 mg/dL (0.2-1.2); CALCIUM 9.6 mg/dL (8.4-10.2); CREATININE, SERUM 0.89 mg/dL (0.57-1.11); POTASSIUM 4.5 mmol/L (3.5-5.1); TOTAL PROTEIN 7.7 g/dL (6.5-8.1)
[2024-09-14] MEDS ORDERED: MEDROL4 M2 PO (23:13)
[2024-09-14 23:19] VITALS: PULSE 77; RESP 16; TEMP 98.6; O2SAT 100
== END 2024-09-14 23:20 | disposition home or self-care (01) ==
LOC: ER 21:43
DX: R06.02 Shortness of breath (principal); R07.89 Other chest pain; M25.561 Pain in right knee; G89.29 Other chronic pain
CPT/HCPCS: 36415; 71045; 80053; 84484; 85025; 93005; 99284; J1885; J2470